=== PATIENT | male | born 1990 | race Two or more races ===

== ENCOUNTER 2018-07-30 23:06 | Emergency (ER) | payer SELFPAY ==
[~2018-07-30] VITALS: Ht 182.9 cm; Wt 72.6 kg
[2018-07-30 23:32] VITALS: BP 116/77
[2018-07-31] MEDS ORDERED: ONDANSETRON HCL 4 MG/2 ML VIAL IV ONE (01:30)
[2018-07-31] MEDS ORDERED: MORPHINE SULFATE 10 MG/ML INJ 1ML SDV IV ONE (01:30)
[2018-07-31] MEDS ORDERED: ONDANSETRON HCL 4 MG/2 ML VIAL ONE (01:34)
[2018-07-31] MEDS ORDERED: NALBUPHINE HCL 10 MG/1ml INJECTION ONE (01:55)
[2018-08-18] MEDS ORDERED: ONDANSETRON HCL 4 MG/2 ML VIAL IV ONE (11:00)
[2018-08-18] MEDS ORDERED: NALBUPHINE HCL 10 MG/1ml INJECTION IV ONE (11:00)
== END 2018-07-31 03:30 | disposition home or self-care (01) ==
LOC: ER 23:12
DX: S43.102A Unspecified dislocation of left acromioclavicular joint, initial encounter (principal); W31.9XXA Contact with unspecified machinery, initial encounter; Y93.23 Activity, snow (alpine) (downhill) skiing, snowboarding, sledding, tobogganing and snow tubing; Y92.89 Other specified places as the place of occurrence of the external cause; Y99.8 Other external cause status
CPT/HCPCS: 73000; 73030; 73060; 99283; J2300; J2405